=== PATIENT | female | born 1950 | race Caucasian/White ===

== ENCOUNTER → 2016-05-03 | Outpatient (CLI) | payer OTHER, MEDICARE ==
--- NOTE | 2016-05-03 13:47 | MA ---
Screening Digital Mammogram With iCAD Analysis Clinical Indications: Routine screening. Technique: Standard cephalocaudal projections are obtained. Digital breast tomosynthesis was performe d in the MLO projection with reconstruction at 1.0 mm slice thickness and composite MLO views reconst ructed. This examination is processed by the iCAD computer aided detection system. Comparison: April 2015, September 2014, March 2014, March 2013, January 2012, January 2011, 2009, November 2008. Breast density: Type C: Heterogeneously dense. Findings: CAD was reviewed. No masses, suspicious calcifications or secondary signs of malignancy are seen. There has been no significant change in the appearance of either breast. Impression: Negative mammogram. BI-RADS 1. Recommendation: Routine mammographic screening in one year as long as physical examination is negativ e in this patient with heterogeneously dense breast parenchyma. [facility] will send a result letter to the patient. Negative mammography should not preclude additional workup of a clinically suspicious finding. The patient's information is entered into a reminder system with a target due date for her next mammo gram.
== END ==
LOC: FIMAGING 10:24
DX: Z12.31 Encounter for screening mammogram for malignant neoplasm of breast (principal)
CPT/HCPCS: G0202

== ENCOUNTER 2017-02-05 14:44 | Emergency (ER) | payer OTHER, MEDICARE ==
[2017-02-05 15:01] VITALS: TEMP 97.3
[2017-02-05] MEDS ORDERED: NS 1,000 ML IV ONE ×2 (15:46→15:48)
[2017-02-05] MEDS ORDERED: HYDROmorphONE/DILAUDID 1 MG/ML INJ IVP ONE (15:46)
[2017-02-05] MEDS ORDERED: ONDANSETRON 4 MG/2 ML VIAL IVP ONE (15:46)
[2017-02-05] MEDS ORDERED: HYDROmorphONE/DILAUDID 1 MG/ML INJ ONE (15:48)
--- NOTE | 2017-02-05 15:53 | EDPHY ---
H & P Stated Complaint: L abdominal/flank pain/nausea/vomiting Time Seen by Provider: 02/05/17 15:36 HPI/ROS: Chief Complaint: Abdominal pain HPI: A 67-year-old woman began having left-sided abdominal pain extending to her left flank about 1 hour ago. He came on suddenly. She has had some nausea but no vomiting. At worst is an 8/10. There are no aggravating or alleviating factors. She does have a history of chronic back pain but this is different and more in the abdomen. She states she has urge to urinate but has been able to pass urine. No fevers or chills. Cannot find a position of comfort. ROS: 10 point Review of Systems is negative except as noted in the HPI. PMH: Chronic back pain, cholecystectomy, reflux Social History: No smoking, occasional alcohol, no recreational drug use Family History: non-contributory Physical Exam: Gen: Awake, Alert, No Distress HEENT: Nose: no rhinorrhea Eyes: PERRLA, EOMI Mouth: Moist mucosa Neck: Supple, no JVD Chest: nontender, lungs clear to auscultation Heart: S1, S2 normal, no murmur Abd: Soft, moderate diffuse tenderness without guarding Back: no CVA tenderness, no midline tenderness Ext: no edema, non-tender Skin: no rash Neuro: CN II-XII intact, Sensation grossly intact, Strength 5/5 in bilateral upper and lower extremities - Personal History Current Tetanus Diphtheria and Acellular Pertussis (TDAP): No - Medical/Surgical History Hx Asthma: No Hx Chronic Respiratory Disease: No Hx Diabetes: No Hx Cardiac Disease: No Hx Renal Disease: No Hx Cirrhosis: No Hx Alcoholism: No Hx HIV/AIDS: No Hx Splenectomy or Spleen Trauma: No Other PMH: [place], back pain, acid reflux - Social History Smoking Status: Never smoked Constitutional: Initial Vital Signs Temperature (C) 36.3 C 02/05/17 14:58 Heart Rate 67 02/05/17 14:58 Respiratory Rate 18 02/05/17 14:58 Blood Pressure 131/66 H 02/05/17 14:58 O2 Sat (%) 99 02/05/17 14:58 O2 Delivery Mode Room Air O2 (L/minute) 2 Allergies/Adverse Reactions: amoxicillin Allergy (Verified 02/05/17 15:03) erythromycin base Allergy (Verified 02/05/17 15:03) Home Medications: Medication Instructions Recorded Lunesta 02/05/17 Pravastatin Sodium 02/05/17 Prilosec Otc 02/05/17 Tamsulosin HCl 0.4 mg PO DAILY #10 cap 02/05/17 Medical Decision Making - Diagnostics Imaging Results: Imaging Impressions Abdomen/Pelvis CT 02/05/17 15:49 Impression: 1. Left nephrolithiasis. 2. Mild left hydronephrosis, with secondary secondary evidence of calyceal rupture, and a 3 x 5 mm stone at the left ureterovesical junction. 3. Status post cholecystectomy. Attention: This CT examination is specifically designed to evaluate patients who are clinically suspected of having acute obstructive uropathy. This examination does not use radiographic contrast, and as such, provides only a limited evaluation of the abdomen, pelvis, and retroperitoneum. If there is further clinical suspicion for pathological conditions other than obstructive uropathy, a complete CT evaluation of the abdomen and pelvis utilizing intravenous, oral, and rectal contrast should be considered. Findings were discussed with Casey Negron MD at 16:22, on 02/05/2017. ED Course/Re-evaluation: CT scan noted for kidney stone. Patient's pain is improved. Urinalysis is negative for infection. Will discharge with analgesia, tamsulosin, anti- inflammatories and follow up with Urology. - Data Points Laboratory Results: Laboratory Results 02/05/17 15:45 02/05/17 15:45 02/05/17 02/05/17 02/05/17 17:05 15:45 15:45 WBC 12.86 10^3/uL H 10^3/uL (3.80-9.50) RBC 4.89 10^6/uL 10^6/uL (4.18-5.33) Hgb 15.8 g/dL g/dL (12.6-16.3) Hct 43.7 % % (38.0-47.0) MCV 89.4 fL fL (81.5-99.8) MCH 32.3 pg pg (27.9-34.1) MCHC 36.2 g/dL g/dL (32.4-36.7) RDW 11.8 % % (11.5-15.2) Plt Count 248 10^3/uL 10^3/uL (150-400) MPV 9.8 fL fL (8.7-11.7) Neut % (Auto) 71.2 % % (39.3-74.2) Lymph % (Auto) 21.7 % % (15.0-45.0) [place] % (Auto) 5.1 % % (4.5-13.0) Eos % (Auto) 0.9 % % (0.6-7.6) Baso % (Auto) 0.5 % % (0.3-1.7) Nucleat RBC Rel Count 0.0 % % (0.0-0.2) Absolute Neuts (auto) 9.17 10^3/uL H 10^3/uL (1.70-6.50) Absolute Lymphs (auto) 2.79 10^3/uL 10^3/uL (1.00-3.00) Absolute Monos (auto) 0.65 10^3/uL 10^3/uL (0.30-0.80) Absolute Eos (auto) 0.11 10^3/uL 10^3/uL (0.03-0.40) Absolute Basos (auto) 0.06 10^3/uL 10^3/uL (0.02-0.10) Absolute Nucleated RBC 0.00 10^3/uL 10^3/uL (0-0.01) Immature Gran % 0.6 % % (0.0-1.1) Immature Gran # 0.08 10^3/uL 10^3/uL (0.00-0.10) Sodium 139 mEq/L mEq/L (134-144) Potassium 4.1 mEq/L mEq/L (3.5-5.2) Chloride 104 mEq/L mEq/L (97-110) Carbon Dioxide 19 mEq/l L mEq/l (22-31) Anion Gap 16 mEq/L mEq/L (8-16) BUN 22 mg/dL mg/dL (7-23) Creatinine 0.7 mg/dL mg/dL (0.6-1.0) Estimated GFR > 60 Glucose 125 mg/dL H mg/dL (70-100) Calcium 9.3 mg/dL mg/dL (8.5-10.4) Total Bilirubin 0.7 mg/dL mg/dL (0.1-1.4) AST 31 IU/L IU/L (14-46) ALT 22 IU/L IU/L (9-52) Alkaline Phosphatase 135 IU/L H IU/L (38-126) Total Protein 7.1 g/dL g/dL (6.3-8.2) Albumin 4.4 g/dL g/dL (3.5-5.0) Lipase 157 IU/L IU/L (23-300) Urine Color YELLOW Urine Appearance MODERATELY TURBID Urine pH 7.0 (5.0-7.5) Ur Specific [place] 1.013 (1.002-1.030) Urine Protein NEGATIVE (NEGATIVE) Urine Ketones TRACE H (NEGATIVE) Urine Blood 2+ H (NEGATIVE) Urine Nitrate NEGATIVE (NEGATIVE) Urine Bilirubin NEGATIVE (NEGATIVE) Urine Urobilinogen NEGATIVE EU EU (0.2-1.0) Ur Leukocyte Esterase NEGATIVE (NEGATIVE) Urine RBC Pending Urine WBC Pending Ur Epithelial Cells Pending Urine Glucose NEGATIVE (NEGATIVE) Medications Given: Discontinued Medications Hydromorphone HCl (Dilaudid) 0.5 mg IVP EDNOW ONE Stop: 02/05/17 15:47 Last Admin: 02/05/17 15:52 Dose: 0.5 mg Sodium Chloride (Ns) 1,000 mls @ 0 mls/hr IV ONCE ONE; Wide Open PRN Reason: Protocol Stop: 02/05/17 15:47 Last Admin: 02/05/17 15:53 Dose: 1,000 mls Sodium Chloride (Ns) 1,000 mls @ 0 mls/hr IV ONCE ONE; Wide Open PRN Reason: Protocol Stop: 02/05/17 15:49 Last Admin: 02/05/17 15:54 Dose: Not Given Ketorolac Tromethamine (Toradol) 15 mg IVP EDNOW ONE Stop: 02/05/17 16:15 Last Admin: 02/05/17 16:18 Dose: 15 mg Ondansetron HCl (Zofran) 4 mg IVP EDNOW ONE Stop: 02/05/17 15:47 Last Admin: 02/05/17 15:52 Dose: 4 mg Departure - Departure Disposition: Home, Routine, Self-Care Clinical Impression: Kidney stone Condition: Good Instructions: Kidney Stones (ED), How to Strain Your Urine (ED) Additional Instructions: You may take ibuprofen 600 mg 3 times a day. You may take Percocet if the ibuprofen is not provide you adequate relief. Follow up with Urology in 3-4 days. Return to the emergency depart for increasing pain, fevers, chills, uncontrolled nausea or vomiting, or any other concerns. Referrals: Angie Leroy MD [Primary Care Provider] - As per Instructions Cathryn Hull MD [Medical Doctor] - As per Instructions Prescriptions: Tamsulosin HCl 0.4 mg PO DAILY #10 cap
[2017-02-05 15:54] LABS: % IMMATURE GRANULYOCYTES 0.6 % (0.0-1.1); ABSOLUTE IMMATURE GRANULOCYTES 0.08 10^3/uL (0.00-0.10); ADD DIFF? NO; ADD MORPH? NO; ADD SCAN? NO; ATYPICAL LYMPHOCYTE FLAG 0 (0-99); FRAGMENT RBC FLAG 0 (0-99); HEMATOCRIT 43.7 % (38.0-47.0); HEMOGLOBIN 15.8 g/dL (12.6-16.3); LEFT SHIFT FLG 0 (0-99); LIPEMIA HEMOLYSIS FLAG 90 (0-99); MEAN CELL HEMOGLOBIN 32.3 pg (27.9-34.1); MEAN CELL HEMOGLOBIN CONCENTR. 36.2 g/dL (32.4-36.7); MEAN CELL VOLUME 89.4 fL (81.5-99.8); MEAN PLATELET VOLUME 9.8 fL (8.7-11.7); PLATELET CLUMPS FLAG 20 (0-99); PLATELET COUNT 248 10^3/uL (150-400); RED BLOOD CELL COUNT 4.89 10^6/uL (4.18-5.33); RED CELL DISTRIBUTION WIDTH 11.8 % (11.5-15.2)
[2017-02-05 16:04] LABS: ALANINE AMINOTRANSFERASE 22 IU/L (9-52); ALBUMIN 4.4 g/dL (3.5-5.0); ALKALINE PHOSPHATASE 135 IU/L (38-126); ANION GAP 16 mEq/L (8-16); ASPARTATE AMINOTRANSFERASE 31 IU/L (14-46); BILIRUBIN,TOTAL 0.7 mg/dL (0.1-1.4); CALCIUM 9.3 mg/dL (8.5-10.4); CARBON DIOXIDE 19 mEq/l (22-31); CHLORIDE 104 mEq/L (97-110); CREATININE 0.7 mg/dL (0.6-1.0); GLOMERULAR FILTRATION RATE > 60; GLUCOSE 125 mg/dL (70-100); POTASSIUM 4.1 mEq/L (3.5-5.2); SODIUM 139 mEq/L (134-144); TOTAL PROTEIN 7.1 g/dL (6.3-8.2)
[2017-02-05] MEDS ORDERED: KETOROLAC 15 MG/1 ML SDV IVP ONE (16:14)
[2017-02-05] MEDS ORDERED: KETOROLAC 15 MG/1 ML SDV ONE (16:15)
[2017-02-05 17:46] LABS: COLOR YELLOW; LEUKOCYTE ESTERASE,URINE NEGATIVE (NEGATIVE); NITRITE,URINE NEGATIVE (NEGATIVE)
[2017-02-05 18:06] VITALS: BP 133/83; PULSE 103; RESP 16; O2SAT 97
[2017-02-05 18:08] LABS: AMORPHOUS PRESENT /hpf (NONE-1+); MUCUS TRACE /lpf (NONE-1+); RBC,URINE 50-182 /hpf (0-3)
[2017-02-05] MEDS ORDERED: OXYCODONE/APAP 5/325MG PREPACK#4 BTL TAKEHOME ONE (18:22)
[2017-02-05] MEDS ORDERED: TAMSULOSIN HCL 0.4 MG CAP PO ONE (18:23)
== END 2017-02-05 18:47 | disposition home or self-care (01) ==
DX: N20.0 Calculus of kidney (principal); E86.9 Volume depletion, unspecified; Z90.49 Acquired absence of other specified parts of digestive tract
CPT/HCPCS: 74176; 96361; 96374; 96375; 99285; J1170; J1885; J2405

== ENCOUNTER → 2017-02-07 | Outpatient (CLI) | payer OTHER, MEDICARE | LOC: FIMAGING 15:09 | PROVIDERS: ATTEND Specialist | DX: N20.1 Calculus of ureter (principal) ==

== ENCOUNTER → 2017-05-09 | Outpatient (CLI) | payer OTHER, MEDICARE | LOC: FIMAGING 09:41 | PROVIDERS: ATTEND Family Medicine | DX: Z12.31 Encounter for screening mammogram for malignant neoplasm of breast (principal) ==

== ENCOUNTER → 2017-05-16 | Outpatient (CLI) | payer OTHER, MEDICARE | LOC: FIMAGING 10:14 | PROVIDERS: ATTEND Specialist | DX: Z03.89 Encounter for observation for other suspected diseases and conditions ruled out (principal) ==

== ENCOUNTER → 2018-04-03 | Outpatient (CLI) | payer OTHER, MEDICARE | LOC: FIMAGING 08:35 | PROVIDERS: ATTEND Family Medicine | DX: Z13.820 Encounter for screening for osteoporosis (principal); M81.0 Age-related osteoporosis without current pathological fracture ==

== ENCOUNTER → 2018-05-15 | Outpatient (CLI) | payer OTHER, MEDICARE | LOC: FIMAGING 09:06 | PROVIDERS: ATTEND Family Medicine | DX: Z12.31 Encounter for screening mammogram for malignant neoplasm of breast (principal) ==